=== PATIENT | male | born 1990 | race Caucasian/White ===

== ENCOUNTER 2018-04-01 19:09 | Emergency (ER) | payer OTHER ==
[~2018-04-01] VITALS: Ht 172.7 cm; Wt 70.0 kg
[2018-04-01 19:12] VITALS: BP 123/70; PULSE 75; RESP 22; Ht 172.7 cm; Wt 70.0 kg
[2018-04-01] MEDS ORDERED: EPINEPHrine 1 MG INJ SC STA (20:26)
[2018-04-01] MEDS ORDERED: EPIN0.3P4 INJ (20:39)
[2018-04-01] MEDS ORDERED: CETI10CA PO (20:39)
[2018-04-01] MEDS ORDERED: RANI150T35 PO (20:43)
--- NOTE | 2018-04-01 20:49 | ERD ---
ER Documentation Chief Complaint Chief Complaint facial swelling after eating dinner of potatoes&rice HPI 27-year-old male complaining of throat swelling, facial itching and swelling during dinner about 2 hours ago. Reports that he noticed his right eye was swollen. He was given Claritin tablet by his sister. Patient states that his itching and swelling on the face appeared to be improved, but he still felt his throat swollen. He reports feeling short of breath at the onset. Currently, he still felt his nose is congested, but able to breathe through his mouth. The dinner was cooked by his mom, and is same thing that he always eats without issues. Patient reports taking omeprazole for last 2-month for gastritis. Denies exposure to any new foods or new cleaning products. Denies any other new medications or other exposure. Denies fever or chills. Denies abdominal pain, nausea, or vomiting. ROS All systems reviewed and are negative except as per history of present illness. Medications Home Meds Active Scripts Ranitidine Hcl* (Zantac*) 150 Mg Tablet, 150 MG PO BID PRN for EPIGASTRIC PAIN, #30 TAB Prov:DEAN BURNETT. AGENT LICENSING CLERK 04/01/18 Epinephrine (Epipen 2-Ross) 0.3 Mg/0.3 Ml Pen.injctr, 1 EA INJ ONCE PRN for ALLERGIC REACTION, #1 EA Prov:DEAN BURNETT. AGENT LICENSING CLERK 04/01/18 Cetirizine Hcl* (Zyrtec*) 10 Mg Capsule, 10 MG PO DAILY, #10 TAB.CHEW Prov:DEAN BURNETT. AGENT LICENSING CLERK 04/01/18 Allergies Allergies: Coded Allergies: No Known Allergy (Verified Allergy, Unknown, 02/05/08) PMhx/Soc Medical and Surgical Hx: pt denies Surgical Hx History of Surgery: No Anesthesia Reaction: No Hx Neurological Disorder: No Hx Respiratory Disorders: No Hx Cardiac Disorders: No Hx Psychiatric Problems: No Hx Miscellaneous Medical Probl: Yes (GERD) Hx Alcohol Use: No Hx Substance Use: No Hx Tobacco Use: No Smoking Status: Never smoker Physical Exam Vitals Vital Signs Date Temp Pulse Resp B/P (MAP) Pulse Ox O2 O2 Flow FiO2 Time Delivery Rate 04/01/18 97.8 75 22 123/70 98 19:12 (87) Physical Exam General: Well-developed, well-nourished, conscious and coherent, in no distress Skin: Warm and dry without rash, good texture and turgor Head: Normocephalic without evidence of trauma Eyes: Sclera and conjunctivae normal; pupils equal, round, and reactive to light; extraocular movements are intact. No periorbital swelling Nose/Face: Nasal congestion Mouth/throat: Mucous membranes are moist. Posterior pharynx clear without erythema or exudates. No pharyngeal swelling Neck: Supple without meningismus or adenopathy. Carotids are equal. Trachea midline. No bruits or JVD Chest: Normal AP diameter. Good expansion without retractions. Nontender. Lungs are clear to auscultate bilaterally with good tidal volume Heart: Regular rate and rhythm. No murmur, rub, or gallops heard Abdomen: Soft and nontender without masses, guarding, or rebound. Bowel sounds are active. No hepatosplenomegaly Extremities: Full range of motion. Good strength bilaterally. No erythema, ecchymosis, or edema. Peripheral pulses are intact. Sensation intact Neuro: Alert and oriented 4, GCS 15. Results 24 hrs Current Medications Medications Dose Sig/Thea Start Time Status Last (Trade) Ordered Route PRN Stop Time Admin Dose Reason Admin Epinephrine 0.3 mg ONCE STAT 04/01/18 DC 04/01/18 SC 20:26 04/01/18 20:33 (EPINEPHrine) 20:28 50 mg ONCE ONCE 04/01/18 DC 04/01/18 Diphenhydrami PO 22:30 04/01/18 22:12 ne HCl 22:31 (Benadryl) Procedures/MDM 27-year-old male present ED with allergic reaction symptoms. Patient still complaining of swelling in his throat, concerning for anaphylaxis. Epinephrine 0.3 mg subcu and Benadryl 50 mg p.o. given to the patient in the ED. patient reports throat swelling resolved after the medications. Patient is observed for 3 hours after epinephrine. No recurrence of the symptoms. Patient appears well, stable for discharge and outpatient management. Medical decision making shared with patient and family. Education provided to patient and family. Patient and family expressed understanding of the plan. Medications on discharge: EpiPen, cetirizine, ranitidine. Follow-up: Primary care provider in 2-3 days or return to ED if worse. Disclaimer: Inadvertent spelling and grammatical errors are likely due to EHR/dictation software use and do not reflect on the overall quality of patient care. Also, please note that the electronic time recorded on this note does not necessarily reflect the actual time of the patient encounter. Departure Diagnosis: Primary Impression: Allergic reaction Encounter type: initial encounter Qualified Codes: T78.40XA - Allergy, unspecified, initial encounter Condition: Stable Patient Instructions: Anaphylaxis, General Referrals: DOCTOR,NOT ON STAFF (PCP) COMM[facility] YOU HAVE RECEIVED A MEDICAL SCREENING EXAM AND THE RESULTS INDICATE THAT YOU DO NOT HAVE A CONDITION THAT REQUIRES URGENT TREATMENT IN THE EMERGENCY DEPARTMENT. FURTHER EVALUATION AND TREATMENT OF YOUR CONDITION CAN WAIT UNTIL YOU ARE SEEN IN YOUR DOCTORS OFFICE WITHIN THE NEXT 1-2 DAYS. IT IS YOUR RESPONSIBILITY TO MAKE AN APPOINTMENT FOR FOLOW-UP CARE. IF YOU HAVE A PRIMARY DOCTOR --you should call your primary doctor and schedule an appointment IF YOU DO NOT HAVE A PRIMARY DOCTOR YOU CAN CALL OUR PHYSICIAN REFERRAL HOTLINE AT IF YOU CAN NOT AFFORD TO SEE A PHYSICIAN YOU CAN CHOSE FROM THE FOLLOWING [facility] [address] [facility]. [facility] [address] [facility]. [facility] [address] [facility] [facility] [address] [facility]. [facility] [address] [facility]. [facility]. [address] [place] Additional Instructions: Call your primary care doctor TOMORROW for an appointment during the next 2-3 days.See the doctor sooner or return here if your condition worsens before your appointment time. DEAN BURNETT NP Apr 01, 2018 20:49
[2018-04-01] MEDS ORDERED: DIPHENHYDRAMINE 50 MG CAP PO ONE (22:30)
== END 2018-04-01 23:37 | disposition home or self-care (01) ==
LOC: FTE 19:09
DX: R22.0 Localized swelling, mass and lump, head (principal); R40.2412 Glasgow coma scale score 13-15, at arrival to emergency department
CPT/HCPCS: J0171; Z7610; 99282

== ENCOUNTER 2018-05-31 12:30 | Day surgery (SDC) | payer OTHER ==
[~2018-05-31] VITALS: Ht 165.1 cm; Wt 68.6 kg
[~2018-05-31 12:30] MED LIST: CETI10CA PO; EPIN0.3P4 INJ; RANI150T35 PO
[2018-05-31 13:23] VITALS: Ht 165.1 cm; Wt 68.6 kg
[2018-05-31] MEDS ORDERED: DIPHENHYDRAMINE 50 MG INJ ONE (13:36)
--- NOTE | 2018-05-31 13:37 | HPN ---
Date/Time of Note Date/Time of Note DATE: 05/31/18 TIME: 13:37 Interval H&P Admission Note Pt. seen H&P reviewed: No system changes ROXY GARNER May 31, 2018 13:37
[2018-05-31] MEDS ORDERED: MIDAZOLAM 1 MG/ML 2 ML INJ ONE ×2 (14:20)
[2018-05-31] MEDS ORDERED: FENTAnyl 50 MCG/ML VIAL ONE (14:21)
[2018-05-31] MEDS ORDERED: LIDOCAINE 2% (SDV) 5 ML INJ ONE (14:22)
[2018-05-31] MEDS ORDERED: ONDANSETRON 4 MG INJ ONE (14:23)
[2018-05-31 14:35] VITALS: BP 111/66; PULSE 65; RESP 18
== END 2018-05-31 16:51 | disposition home or self-care (01) ==
LOC: GIL 12:30
PROVIDERS: ATTEND Internal Medicine Gastroenterology
DX: R19.4 Change in bowel habit (principal); K29.30 Chronic superficial gastritis without bleeding
CPT/HCPCS: 43239; 45380; 88305; 88312; J1200; J2250; J2405; J3010; Z7610

== ENCOUNTER 2018-07-05 03:31 | Observation (INO) | payer OTHER ==
[~2018-07-05] VITALS: Ht 172.7 cm; Wt 70.3 kg
[2018-07-05] MEDS ORDERED: ACETAMINOPHEN 325 MG TAB PO STA (03:48)
[2018-07-05] MEDS ORDERED: CEFEPIME 2GM/50 ML (PMX) 50 ML IVPB STA (03:48)
[2018-07-05] MEDS ORDERED: SODIUM CHLORIDE 0.9% 1L BAG IV* STA (03:48)
[2018-07-05] MEDS ORDERED: VANCOMYCIN 1 GM (PMX) 250 ML IVPB ONE (04:00)
[2018-07-05] MEDS ORDERED: ONDANSETRON 4 MG INJ ONE (04:17)
[2018-07-05] MEDS ORDERED: ONDANSETRON 4 MG INJ IV STA (04:26)
[2018-07-05] MEDS ORDERED: morphine 4 MG/ML VIAL IV STA ×2 (04:26→06:02)
[2018-07-05] MEDS ORDERED: KETOROLAC 30 MG INJ IV STA (04:27)
--- NOTE | 2018-07-05 05:10 | ERD ---
ER Documentation Chief Complaint Chief Complaint fever/body aches /abd/back pain x 2 days HPI This is a 28-year-old male with fever body aches back pain and chest pain for the past 2 days. Patient has history of pericarditis. Fevers been as high as 103 at home. Mild nausea but no vomiting. No chills. No other current complaints. ROS All systems reviewed and are negative except as per history of present illness. Medications Home Meds Active Scripts Ranitidine Hcl* (Zantac*) 150 Mg Tablet, 150 MG PO BID PRN for EPIGASTRIC PAIN, #30 TAB Prov:DEAN BURNETT. CLINICAL QUALITY MANAGER 04/01/18 Epinephrine (Epipen 2-Ross) 0.3 Mg/0.3 Ml Pen.injctr, 1 EA INJ ONCE PRN for ALLER GIC REACTION, #1 EA Prov:DEAN BURNETT. CLINICAL QUALITY MANAGER 04/01/18 Cetirizine Hcl* (Zyrtec*) 10 Mg Capsule, 10 MG PO DAILY, #10 TAB.CHEW Prov:DEAN BURNETT. CLINICAL QUALITY MANAGER 04/01/18 Allergies Allergies: Coded Allergies: No Known Allergy (Verified , 02/05/08) PMhx/Soc History of Surgery: No Anesthesia Reaction: No Hx Neurological Disorder: No Hx Respiratory Disorders: No Hx Cardiac Disorders: Yes (pericarditis ) Hx Psychiatric Problems: No Hx Miscellaneous Medical Probl: Yes (GERD, UTI) Hx Alcohol Use: No Hx Substance Use: No Hx Tobacco Use: No Smoking Status: Never smoker Physical Exam Vitals Vital Signs Date Temp Pulse Resp B/P (MAP) Pulse Ox O2 O2 Flow FiO2 Time Delivery Rate 07/05/18 102.5 105 25 104/48 96 Room Air 04:58 (66) 07/05/18 103.5 04:07 07/05/18 103.5 118 20 130/75 98 03:44 (93) Physical Exam Const: No acute distress Head: Atraumatic Eyes: Normal Conjunctiva ENT: Normal External Ears, Nose and Mouth. Neck: Full range of motion. No meningismus. Resp: Clear to auscultation bilaterally Cardio: Regular rate and rhythm, no murmurs Abd: Soft, non tender, non distended. Normal bowel sounds Skin: No petechiae or rashes Back: No midline or flank tenderness Ext: No cyanosis, or edema Neur: Awake and alert Psych: Normal Mood and Affect Result Diagram: 07/05/1839907/05/18 0400 Results 24 hrs Laboratory Tests Test 07/05/18 03:59 07/05/18 04:00 POC Venous Lactate 2.1 mmol/L White Blood Count 16.1 10^3/ul Red Blood Count 6.04 10^6/ul Hemoglobin 15.9 g/dl Hematocrit 48.6 % Mean Corpuscular Volume 80.5 fl Mean Corpuscular Hemoglobin 26.3 pg Mean Corpuscular Hemoglobin Concent 32.7 g/dl Red Cell Distribution Width 13.0 % Platelet Count 302 10^3/UL Mean Platelet Volume 8.2 fl Immature Granulocytes % 0.400 % Neutrophils % 87.1 % Lymphocytes % 8.7 % Monocytes % 3.2 % Eosinophils % 0.4 % Basophils % 0.2 % Nucleated Red Blood Cells % 0.0 /100WBC Immature Granulocytes # 0.060 10^3/ul Neutrophils # 14.0 10^3/ul Lymphocytes # 1.4 10^3/ul Monocytes # 0.5 10^3/ul Eosinophils # 0.1 10^3/ul Basophils # 0.0 10^3/ul Nucleated Red Blood Cells # 0.0 10^3/ul Prothrombin Time 12.9 Sec Prothrombin Time Ratio 1.0 INR International Normalized Ratio 0.96 Activated Partial Thromboplast Time 25.7 Sec Sodium Level 144 mmol/L Potassium Level 3.8 mmol/L Chloride Level 104 mmol/L Carbon Dioxide Level 29 mmol/L Anion Gap 11 Blood Urea Nitrogen 13 mg/dl Creatinine 0.93 mg/dl Est Glomerular Filtrat Rate mL/min > 60 mL/min Glucose Level 99 mg/dl Calcium Level 9.6 mg/dl Total Bilirubin 0.2 mg/dl Direct Bilirubin 0.00 mg/dl Indirect Bilirubin 0.2 mg/dl Aspartate Amino Transf (AST/SGOT) 25 IU/L Alanine Aminotransferase (ALT/SGPT) 33 IU/L Alkaline Phosphatase 79 IU/L Troponin I < 0.012 ng/ml Total Protein 8.2 g/dl Albumin 4.7 g/dl Globulin 3.50 g/dl Albumin/Globulin Ratio 1.34 Current Medications Medications Dose Sig/Thea Start Time Status Last (Trade) Ordered Route PRN Stop Time Admin Dose Reason Admin Sodium 2,110 ml BOLUS OVER 2 07/05/18 DC 07/05/18 Chloride HOURS STAT 03:48 07/05/18 04:07 (NS) IV* 03:49 650 mg ONCE STAT 07/05/18 DC 07/05/18 Acetaminophen PO 03:48 07/05/18 04:07 (Tylenol 03:49 Tab) Cefepime HCl 50 ml @ ONCE STAT 07/05/18 DC 07/05/18 100 mls/hr IVPB 03:48 07/05/18 04:10 04:17 Vancomycin 250 ml @ ONCE ONCE 07/05/18 07/05/18 HCl 125 mls/hr IVPB 04:00 07/05/18 04:46 05:59 Ondansetron 4 mg STK-MED 07/05/18 DC HCl (Zofran ONCE .ROUTE 04:17 07/05/18 Inj) 04:18 Morphine 4 mg ONCE STAT 07/05/18 DC 07/05/18 Sulfate IV 04:26 07/05/18 04:31 (morphine) 04:27 Ondansetron 4 mg ONCE STAT 07/05/18 DC 07/05/18 HCl (Zofran IV 04:26 07/05/18 04:31 Inj) 04:27 Ketorolac 30 mg ONCE STAT 07/05/18 DC 07/05/18 Tromethamine IV 04:27 07/05/18 04:32 (Toradol) 04:28 Procedures/MDM EKG: Rate/Rhythm: [Normal Sinus Rhythm] QRS, ST, T-waves: Diffuse ST segment elevations consistent with pericarditis Impression: [No evidence of ischemia or arrhythmia] Chest X-ray 1V Interpreted by me: Soft Tissue: No acute abnormalities Bones: No acute abnormalities Mediastinum/Cardiac Silhouette/Lungs: [No acute abnormalities] Patient's infectious symptoms have not stabilized and the patient is at risk of rapid decompensation. The patient will be admitted for careful hydration, antibiotic therapy, and infectious source control. Severe Sepsis Assessment: Infectious Source: Unknown, likely viral End organ damage indicated by: [Lactate > 2.0 mmol/L Severe Sepsis Managment: Blood Cultures X 2 before broad spectrum antibiotics initiated within 3 hours of recognition. Recognized at 4 AM 30 ml/kg NS bolus Completed Initial Lactate: 2.1 Repeat Lactate pending Critical Care: Time: 45 minutes, independent of any separately billable procedural time Treatments/Evaluations: Emergent fluid management, while maintaining close respiratory support. Immediate broad spectrum antibiotic therapy. S imultaneous assessment for possible sources in order to direct therapy. Consideration for invasive and chemical support to prevent respiratory or cardiac collapse. Septic Shock Assessment (1 hour post 30 ml/kg fluid bolus): Hypotension (SBP < 90 or 40 mmHg drop, MAP < 65): [No] Lactic acid > 4.0 [No] Perfusion Reassessment for Septic Shock: 106 heart rate, blood pressure 127/84, respiratory rate 18, O2 sat 99% Heart Exam: [Tachycardic] Lung Exam: [No Crackles] Capillary Refill: [Delayed] Peripheral Pulses: [Radially present] Skin: [Mottled, pale] Accepting Care Team: Current data and ongoing care discussed. Time: 4:45 AM Primary Provider: Dr. Acuña Consulting: Deferred to inpatient team Outstanding Data: none Departure Diagnosis: Primary Impression: Sepsis Sepsis type: sepsis due to unspecified organism Qualified Codes: A41.9 - Sepsis, unspecified organism Additional Impression: Pericarditis Pericarditis type: unspecified type Chronicity: unspecified Qualified Codes: I31.9 - Disease of pericardium, unspecified Condition: Critical AKIRA CRESPO July 05, 2018 05:10
[2018-07-05] MEDS ORDERED: VANCOMYCIN IV PER PHARMACY XX SCH (06:30)
[2018-07-05] MEDS ORDERED: ONDANSETRON 4 MG TAB PO PRN (06:30)
[2018-07-05] MEDS ORDERED: NACL 0.9% 3 ML SYG IV SCH (06:30)
[2018-07-05] MEDS ORDERED: DOCUSATE SODIUM 100 MG CAP PO PRN (06:30)
[2018-07-05] MEDS: ACETAMINOPHEN 325 MG TAB PO PRN ×3 (08:27→20:39)
[2018-07-05] MEDS: HYDROCODONE/APAP (5/325) TAB PO PRN ×2 (08:27→14:49)
[2018-07-05] MEDS ORDERED: VANCOMYCIN 500 MG (PMX) 100 ML IVPB ONE (09:00)
[2018-07-05] MEDS ORDERED: NON-FORMULARY/PATIENT OWN MED (Cetirizine Hcl* (Zyrtec*) 10 MG) PO SCH (09:00)
[2018-07-05] MEDS: NS + KCL 20 MEQ 1,000 ML IV SCH ×2 (09:16→18:04)
[2018-07-05] MEDS: RANITIDINE 150 MG TAB PO SCH ×2 (10:57→21:00)
[2018-07-05] MEDS: LORATADINE 10 MG TAB PO SCH (10:57)
--- NOTE | 2018-07-05 11:22 | HP ---
DATE OF ADMISSION: 07/05/2018 CHIEF COMPLAINT: Abdominal pain associated with nausea, vomiting, and diarrhea. HISTORY OF PRESENT ILLNESS: A 28-year-old male presented to emergency room with complaint of abdominal pain associated with nausea and vomiting of bilious material. The patient also has had diarrhea. He denies hematemesis. No bright red blood per rectum or melena. The patient was in the week prior to admission for 3 days. His symptoms started on the day of admission. The patient had salmon at a restaurant in [place]. He also reports body aches. The patient has history of pericarditis. Initial evaluation revealed a white blood cell count of 16.1. Initial lactate was 2.1, but repeat lactate was 1.4. Basic metabolic panel is otherwise within normal limits. PAST MEDICAL HISTORY: 1. History of pericarditis. 2. Allergic rhinitis. MEDICATIONS PRIOR TO ADMISSION: Zyrtec and ranitidine. SOCIAL HISTORY: The patient denies tobacco and drinks alcohol on social occasions. PHYSICAL EXAMINATION: GENERAL: Well-developed, well-nourished male who is in no apparent distress. He complains of headache. VITAL SIGNS: Temperature is 102, blood pressure 94/59, pulse 99, respirations 17. HEENT: Extraocular muscles intact. Pupils equal and reactive to light bilaterally. Sclerae are anicteric. Oropharynx is clear and moist. NECK: Supple, no JVD, no carotid bruits. LUNGS: Clear to auscultation bilaterally. CARDIAC: Regular rate and rhythm. No murmurs or gallops. ABDOMEN: Soft, mildly tender, normoactive bowel sounds. EXTREMITIES: No clubbing, cyanosis, or edema. NEUROLOGICAL: Nonfocal. ASSESSMENT: 1. Abdominal pain associated with nausea and vomiting and diarrhea, rule out infectious colitis. 2. History of pericarditis PLAN: 1. Place in Med/Surg observation, IV Cipro and Flagyl. Stool cultures. 2. Cardiology consultation was also requested. Dictated By: NAHUN LONDON/BENEDICTO Conf#: [id number] DID#: [id number] CC: KIRTI CARRENO MD;*EndCC* MTDD
--- NOTE | 2018-07-05 11:32 | RADRPT ---
Echocardiogram Report Patient Name: Jere GRIFFIN ID: [id number] : 1990 (28y 1m)Study Date: 07/05/2018 8:23:32 AM Gender: MAccession #: [id number] Tech: Elieser [facility] Location: [facility] Ref.Physician: VINCE KINGSLEY Height(Cm): BSA: Weight(Kg): Quality: GoodAccount #: Procedures: Echocardiographic Report: Transthoracic echocardiogram with complete 2D, M-Mode, and doppler examination. Indications: Possible infectious pericarditis. Measurements: 2D/M Mode Doppler Measurement Value Normal Range Measurement Value Normal Range LVIDd 2D 4.6 [ 4.2 - 5.8 ] cm AV Peak Norris 1.6 [ 100.0 - 170.0 ] cm/sec LVIDs 2D 2.9 [ 2.5 - 4.0 ] cm AV Peak PG 10.0 [ 2.0 - 9.0 ] mmHg LVPWd 2D 0.8 [ 0.6 - 1.0 ] cm LVOT Peak Norris 1.2 [ 70.0 - 110.0 ] cm/sec IVSd 2D 1.3 [ 0.6 - 1.0 ] cm LVOT Peak PG 6.0 [ 2.0 - 6.0 ] mmHg AoR Diam 2D 2.3 [ 2.6 - 3.4 ] cm MV E Peak Norris 1.0 [ 60.0 - 130.0 ] cm/sec EDV 2D 98.3 [ 62.0 - 150.0 ] ml MV A Peak Norris 0.7 [ 100.0 - 120.0 ] cm/sec ESV 2D 31.4 [ 21.0 - 61.0 ] ml MV E/A 1.4 [ 0.8 - 1.5 ] ratio EF 2D 68.1 [ 52.0 - 72.0 ] percent MV Decel Time 109 [ 104 - 258 ] msec LA Dimen 2D 3.5 [ 3.0 - 4.0 ] cm Lat E` Norris 0.2 [ 10.0 - 15.0 ] cm/sec Lateral E/E` 4.2 [ 1.0 - 2.0 ] ratio MV E/A 1.4 [ 0.8 - 1.5 ] ratio TR Peak Norris 1.9 [ 100.0 - 280.0 ] cm/sec TR Peak PG 14.0 mmHg RVSP 17.0 [ 10.0 - 36.0 ] mmHg Findings: Left Ventricle: Hyperdynamic left ventricular systolic function. Normal left ventricular cavity size. Mild asymmetric septal hypertrophy. Ejection fraction is visually estimated at 70 %. Tissue Doppler/Mitral Doppler indices are within normal limits. Right Ventricle: Normal right ventricular size. Normal right ventricular systolic function. Left Atrium: The left atrium is normal in size. Right Atrium: The right atrium is normal in size. Mitral Valve: Mild mitral leaflet calcification. Mild mitral annular calcification. Trace mitral regurgitation. Aortic Valve: No hemodynamically significant aortic stenosis by doppler. Aortic cusps appear mildly calcified. Tricuspid Valve: Normal appearance of the tricuspid valve. Estimated peak PA systolic pressure 17 mmHg. There is trace tricuspid regurgitation. Pulmonic Valve: Normal pulmonic valve appearance. Pericardium: Normal pericardium with no significant pericardial effusion. Aorta: Normal aortic root. IVC: Normal size and normal respiratory collapse consistent with normal right atrial pressure. Conclusions: Hyperdynamic left ventricular systolic function. Normal left ventricular cavity size. Mild asymmetric septal hypertrophy. Ejection fraction is visually estimated at 70 %. Tissue Doppler/Mitral Doppler indices are within normal limits. Normal right ventricular size. Normal right ventricular systolic function. The left atrium is normal in size. The right atrium is normal in size. No significant valvular stenosis or regurgitation seen. Normal pericardium with no significant pericardial effusion. Electronically Signed By: Gabe Edmond 2018-07-05 11:31:47 PDT
[2018-07-05] MEDS: CIPROFLOXACIN 400MG/D5W 200 ML IVPB SCH ×2 (12:45→21:23)
--- NOTE | 2018-07-05 12:51 | CONS ---
Assessment/Plan Assessment/Plan Hospital Course (Demo Recall) Fever, leukocytosis Gastroenteritis Possible pericarditis Preserved ejection fraction -Patient presents with fevers, chills, abdominal pain with nausea vomiting and diarrhea. Patient with recent travel to [place] -Echocardiogram with normal left ventricular ejection fraction, no evidence of p ericardial effusion. ECG with diffuse ST segment abnormalities most likely secondary to an element of pericarditis -Serial cardiac enzymes are negative -Would continue infectious work-up Consultation Date/Type/Reason Admit Date/Time Type of Consult Cardiology Reason for Consultation Fever and history of pericarditis Date/Time of Note DATE: 07/05/18 TIME: 12:44 Hx of Present Illness This is a 28-year-old male carditis number GERD who presents with multiple complaints. Patient states over the past 2 weeks, he has been having worsening fevers and chills. He also complains of left upper quadrant abdominal pain, nausea, vomiting, diarrhea, dysuria. He does complain of worsening pain with inspiration. He denies left-sided chest pain at the current time. Because of worsening symptoms he came to the emergency room. He was diagnosed with pericarditis proximate 2 years ago when he was having inspiratory chest pain and as per the patient, he had a negative stress test at that time. His discomfort currently is more so in the abdomen and not in the chest. His discomfort is sharp in intensity. He does admit to recent travel to [place] approximately 2 weeks ago. 12 point review of systems was performed with all pertinent positives and negatives mentioned above and all else is negative Past Medical History Pericarditis Home Meds Active Scripts Ranitidine Hcl* (Zantac*) 150 Mg Tablet, 150 MG PO BID PRN for EPIGASTRIC PAIN, #30 TAB Prov:DEAN BURNETT. PSYCH THERAPIST 04/01/18 Epinephrine (Epipen 2-Ross) 0.3 Mg/0.3 Ml Pen.injctr, 1 EA INJ ONCE PRN for ALLERGIC REACTION, #1 EA Prov:DEAN BURNETT. PSYCH THERAPIST 04/01/18 Cetirizine Hcl* (Zyrtec*) 10 Mg Capsule, 10 MG PO DAILY, #10 TAB.CHEW Prov:DEAN BURNETT. PSYCH THERAPIST 04/01/18 Medications Current Medications Ranitidine HCl (Zantac) 150 mg BID PO Last administered on 07/05/18at 10:57; Admin Dose 150 MG; Start 07/05/18 at 09:00 IV Flush (NS 3 ml) 3 ml PER PROTOCOL IV ; Start 07/05/18 at 06:30 Ondansetron HCl (Zofran Tab) 4 mg Q6H PRN PO NAUSEA/VOMITING; Start 07/05/18 at 06:30 Acetaminophen (Tylenol Tab) 650 mg Q6H PRN PO .PAIN 1-3 OR TEMP Last administered on 07/05/18at 08:27; Admin Dose 650 MG; Start 07/05/18 at 06:30 Acetaminophen/ Hydrocodone Bitart ([place] (5/325)) 1 tab Q6H PRN PO .PAIN 4-6 Last administered on 07/05/18at 08:27; Admin Dose 1 TAB; Start 07/05/18 at 06:30 Docusate Sodium (Colace) 100 mg Q12H PRN PO .CONSTIPATION; Start 07/05/18 at 06:30 Potassium Chloride/Sodium Chloride 1,000 ml @ 100 mls/hr Q10H IV Last administered on 07/05/18at 09:16; Admin Dose 100 MLS/HR; Start 07/05/18 at 06:30 Loratadine (Claritin) 10 mg DAILY PO Last administered on 07/05/18at 10:57; Admin Dose 10 MG; Start 07/05/18 at 09:00 Ciprofloxacin/ Dextrose 200 ml @ 200 mls/hr Q12 IVPB ; Start 07/05/18 at 11:00 Metronidazole 100 ml @ 100 mls/hr Q8 IVPB ; Start 07/05/18 at 14:00 Allergies: Coded Allergies: No Known Allergy (Verified , 02/05/08) Family History Significant Family History: no pertinent family hx Social History Alcohol Use: none Smoking Status: Never smoker Drug Use: none Exam/Review of Systems Vital Signs Vitals Vital Signs Date Temp Pulse Resp B/P (MAP) Pulse Ox O2 O2 Flow FiO2 Time Delivery Rate 07/05/18 95 12 102/81 98 Room Air 11:30 (88) 07/05/18 102.0 11:16 Intake and Output 07/04/18 07/04/18 07/05/18 1515:00 23:00 07:00 IntakeIntake Total 50 ml BalanceBalance 50 ml Exam Constitutional: alert, oriented (No apparent distress) Head: normocephalic Respiratory: clear to auscultation, normal air movement Cardiovascular: regular rate and rhythm (S1-S2 heard, no murmurs appreciated) Gastrointestinal: soft, bowel sounds, tender (Left upper quadrant) Extremities: other (No edema) Skin: other (Multiple tattoos, no rashes seen) Labs Result Diagram: 07/05/18 1121 07/05/18 0400 Results 24hrs Laboratory Tests Test 07/05/18 03:59 07/05/18 04:00 07/05/18 06:00 07/05/18 06:10 POC Venous Lactate 2.1 *H White Blood Count 16.1 H Red Blood Count 6.04 Hemoglobin 15.9 Hematocrit 48.6 Mean Corpuscular Volume 80.5 L Mean Corpuscular 26.3 L Hemoglobin Mean Corpuscular 32.7 Hemoglobin Concent Red Cell Distribution 13.0 Width Platelet Count 302 Mean Platelet Volume 8.2 Immature Granulocytes % 0.400 Neutrophils % 87.1 H Lymphocytes % 8.7 L Monocytes % 3.2 Eosinophils % 0.4 Basophils % 0.2 Nucleated Red Blood 0.0 Cells % Immature Granulocytes # 0.060 H Neutrophils # 14.0 H Lymphocytes # 1.4 Monocytes # 0.5 Eosinophils # 0.1 Basophils # 0.0 Nucleated Red Blood 0.0 Cells # Prothrombin Time 12.9 Prothrombin Time Ratio 1.0 INR International 0.96 Normalized Ratio Activated 25.7 Partial Thromboplast Time Sodium Level 144 Potassium Level 3.8 Chloride Level 104 Carbon Dioxide Level 29 Anion Gap 11 Blood Urea Nitrogen 13 Creatinine 0.93 Est Glomerular Filtrat > 60 Rate mL/min Glucose Level 99 Calcium Level 9.6 Total Bilirubin 0.2 Direct Bilirubin 0.00 Indirect Bilirubin 0.2 Aspartate Amino 25 Transf (AST/SGOT) Alanine 33 Aminotransferase (ALT/SG PT) Alkaline Phosphatase 79 Troponin I < 0.012 Total Protein 8.2 H Albumin 4.7 Globulin 3.50 H Albumin/Globulin Ratio 1.34 Lactic Acid Level 1.4 Urine Color STRAW Urine Clarity CLEAR Urine pH 6.0 Urine Specific [place] 1.011 Urine Ketones NEGATIVE Urine Nitrite NEGATIVE Urine Bilirubin NEGATIVE Urine Urobilinogen NEGATIVE Urine Leukocyte Esterase NEGATIVE Urine Hemoglobin NEGATIVE Urine Glucose NEGATIVE Urine Total Protein NEGATIVE Test 07/05/18 11:21 Hemoglobin 13.5 L Hematocrit 41.3 L Hemoglobin A1c 5.2 Lactic Acid Level 1.3 Troponin I < 0.012 Thyroid Stimulating 0.420 L Hormone (TSH) Imaging Imaging ECG sinus tachycardia, incomplete right bundle branch block, diffuse ST segment abnormalities Medications Medications Current Medications Ranitidine HCl (Zantac) 150 mg BID PO Last administered on 07/05/18 10:57; Admin Dose 150 MG; Start 07/05/18 at 09:00 IV Flush (NS 3 ml) 3 ml PER PROTOCOL IV ; Start 07/05/18 at 06:30 Ondansetron HCl (Zofran Tab) 4 mg Q6H PRN PO NAUSEA/VOMITING; Start 07/05/18 at 06:30 Acetaminophen (Tylenol Tab) 650 mg Q6H PRN PO .PAIN 1-3 OR TEMP Last admin istered on 07/05/18 08:27; Admin Dose 650 MG; Start 07/05/18 at 06:30 Acetaminophen/ Hydrocodone Bitart ([place] (5/325)) 1 tab Q6H PRN PO .PAIN 4-6 Last administered on 07/05/18 08:27; Admin Dose 1 TAB; Start 07/05/18 at 06:30 Docusate Sodium (Colace) 100 mg Q12H PRN PO .CONSTIPATION; Start 07/05/18 at 06:30 Potassium Chloride/Sodium Chloride 1,000 ml @ 100 mls/hr Q10H IV Last administered on 07/05/18 09:16; Admin Dose 100 MLS/HR; Start 07/05/18 at 06:30 Loratadine (Claritin) 10 mg DAILY PO Last administered on 07/05/18 10:57; Admin Dose 10 MG; Start 07/05/18 at 09:00 Ciprofloxacin/ Dextrose 200 ml @ 200 mls/hr Q12 IVPB ; Start 07/05/18 at 11:00 Metronidazole 100 ml @ 100 mls/hr Q8 IVPB ; Start 07/05/18 at 14:00 Gabe Edmond DO July 05, 2018 12:51
[2018-07-05] MEDS: metroNIDAZOLE 500 MG/NS (PMX) 100 ML IVPB SCH ×2 (14:18→22:45)
[2018-07-05] MEDS ORDERED: VANCOMYCIN 1 GM 250 ML IVPB SCH (17:00)
[2018-07-05 17:15] VITALS: BP 113/66; PULSE 98; RESP 17
[2018-07-05 17:51] VITALS: Ht 172.7 cm; Wt 70.3 kg
[2018-07-05 20:46] VITALS: BP 109/50; PULSE 92; RESP 20
[2018-07-05] MEDS: IBUPROFEN 600 MG TAB PO PRN (21:40)
[2018-07-06 02:42] VITALS: BP 95/56; PULSE 68; RESP 18
[2018-07-06] MEDS: NS + KCL 20 MEQ 1,000 ML IV SCH ×3 (05:17→18:14)
[2018-07-06] MEDS: IBUPROFEN 600 MG TAB PO PRN ×2 (05:17→18:12)
[2018-07-06] MEDS: metroNIDAZOLE 500 MG/NS (PMX) 100 ML IVPB SCH ×3 (05:17→22:06)
[2018-07-06] MEDS ORDERED: ONDANSETRON 4 MG INJ IV PRN (08:30)
[2018-07-06] MEDS: LORATADINE 10 MG TAB PO SCH (08:46)
[2018-07-06] MEDS: CIPROFLOXACIN 400MG/D5W 200 ML IVPB SCH ×2 (08:46→21:03)
[2018-07-06] MEDS: RANITIDINE 150 MG TAB PO SCH ×2 (08:46→21:03)
[2018-07-06 08:50] VITALS: BP 102/55; PULSE 70; RESP 17
[2018-07-06] MEDS ORDERED: CEFEPIME 2GM/50 ML (PMX) 50 ML IVPB SCH (09:00)
[2018-07-06] MEDS ORDERED: CIPR500T4 PO (09:25)
[2018-07-06] MEDS ORDERED: METR500T PO (09:25)
--- NOTE | 2018-07-06 09:25 | PDOCDIS ---
Discharge Instructions CONDITION [id number] Patient Condition: [id number] Good HOME CARE INSTRUCTIONS: [id number] Diet Instructions: [id number] Regular ACTIVITY: [id number] Activity Restrictions: [id number] No Restrictions FOLLOW UP/APPOINTMENTS Follow-up Plan pcp 1 week NAHUN RUIZ MD July 06, 2018 09:25
[2018-07-06] MEDS: morphine 2 MG INJ IV PRN ×3 (10:51→20:02)
[2018-07-06 14:35] VITALS: BP 96/50; PULSE 70; RESP 18
--- NOTE | 2018-07-06 15:27 | CONS ---
Assessment/Plan Assessment/Plan Hospital Course (Demo Recall) Fever, leukocytosis Gastroenteritis Possible pericarditis Preserved ejection fraction -Patient presents with fevers, chills, abdominal pain with nausea vomiting and diarrhea. Patient with recent travel to [place] -Echocardiogram with normal left ventricular ejection fraction, no evidence of p ericardial effusion. ECG with diffuse ST segment abnormalities most likely secondary to an element of pericarditis -Serial cardiac enzymes are negative -Symptoms do not appear cardiac in origin -No further inpatient cardiac work-up needed at the current time Consultation Date/Type/Reason Admit Date/Time July 05, 2018 at 05:53 Initial Consult Date Type of Consult Cardiology Date/Time of Note DATE: 07/06/18 TIME: 15:26 24 HR Interval Summary Free Text/Dictation Denies any chest pain or shortness of breath. Main complaint is abdominal cramping Exam/Review of Systems Vital Signs Vitals Vital Signs Date Temp Pulse Resp B/P (MAP) Pulse Ox O2 O2 Flow FiO2 Time Delivery Rate 07/06/18 98.2 70 18 96/50 (65) 98 14:35 07/06/18 Room Air 02:42 Intake and Output 07/05/18 07/05/18 07/06/18 1515:00 23:00 07:00 IntakeIntake Total 200 ml 1650 ml BalanceBalance 200 ml 1650 ml Exam Constitutional: alert, oriented (Appears uncomfortable) Head: normocephalic Respiratory: clear to auscultation, normal air movement Cardiovascular: regular rate and rhythm (S1-S2 heard) Gastrointestinal: soft, non-tender, bowel sounds Extremities: other (No significant edema) Labs Result Diagram: 07/06/18 0713 07/06/18 0713 Results 24hrs Laboratory Tests Test 07/06/18 07:13 White Blood Count 12.5 #H Red Blood Count 5.04 Hemoglobin 13.4 L Hematocrit 41.2 L Mean Corpuscular Volume 81.7 L Mean Corpuscular Hemoglobin 26.6 L Mean Corpuscular Hemoglobin Concent 32.5 Red Cell Distribution Width 13.6 Platelet Count 201 # Mean Platelet Volume 8.6 Immature Granulocytes % 0.600 H Neutrophils % 82.5 H Lymphocytes % 7.8 L Monocytes % 7.8 Eosinophils % 0.8 Basophils % 0.5 Nucleated Red Blood Cells % 0.0 Immature Granulocytes # 0.070 H Neutrophils # 10.3 H Lymphocytes # 1.0 Monocytes # 1.0 H Eosinophils # 0.1 Basophils # 0.1 Nucleated Red Blood Cells # 0.0 Sodium Level 140 Potassium Level 3.8 Chloride Level 107 Carbon Dioxide Level 26 Anion Gap 7 Blood Urea Nitrogen 6 L Creatinine 0.76 Est Glomerular Filtrat Rate mL/min > 60 Glucose Level 103 Calcium Level 8.8 Magnesium Level 1.7 Medications Medications Current Medications Ranitidine HCl (Zantac) 150 mg BID PO Last administered on 07/06/18 08:46; Admin Dose 150 MG; Start 07/05/18 at 09:00 IV Flush (NS 3 ml) 3 ml PER PROTOCOL IV ; Start 07/05/18 at 06:30 Acetaminophen (Tylenol Tab) 650 mg Q6H PRN PO .PAIN 1-3 OR TEMP Last administe red on 07/05/18 20:39; Admin Dose 650 MG; Start 07/05/18 at 06:30 Acetaminophen/ Hydrocodone Bitart ([place] (5/325)) 1 tab Q6H PRN PO .PAIN 4-6 Last administered on 07/05/18 14:49; Admin Dose 1 TAB; Start 07/05/18 at 06:30 Docusate Sodium (Colace) 100 mg Q12H PRN PO .CONSTIPATION; Start 07/05/18 at 06 :30 Potassium Chloride/Sodium Chloride 1,000 ml @ 100 mls/hr Q10H IV Last administered on 07/06/18 05:17; Admin Dose 100 MLS/HR; Start 07/05/18 at 06:30 Loratadine (Claritin) 10 mg DAILY PO Last administered on 07/06/18 08:46; Admin Dose 10 MG; Start 07/05/18 at 09:00 Ciprofloxacin/ Dextrose 200 ml @ 200 mls/hr Q12 IVPB Last administered on 07/06/18 08:46; Admin Dose 200 MLS/HR; Start 07/05/18 at 11:00 Metronidazole 100 ml @ 100 mls/hr Q8 IVPB Last administered on 07/06/18 14:09; Admin Dose 100 MLS/HR; Start 07/05/18 at 14:00 Ibuprofen (Motrin) 600 mg Q6 PRN PO MILD PAIN(1-3) OR TEMP>38C Last administered on 5/10/19at 05:17; Admin Dose 600 MG; Start 07/05/18 at 22:00 Morphine Sulfate (morphine) 2 mg Q4H PRN IV SEVERE PAIN LEVEL 7-10 Last administered on 07/06/18at 15:02; Admin Dose 2 MG; Start 07/06/18 at 08:30 Ondansetron HCl (Zofran Inj) 4 mg Q6H PRN IV NAUSEA AND/OR VOMITING; Start 07/06/18 at 08:30 Gabe Edmond DO July 06, 2018 15:27
--- NOTE | 2018-07-06 19:35 | DS ---
DATE OF ADMISSION: 07/05/2018 DATE OF DISCHARGE: 07/06/2018 DISCHARGE DIAGNOSES: 1. Acute infectious colitis. 2. History of pericarditis. HOSPITAL COURSE: A 28-year-old male who presented to emergency room with complaint of abdominal pain associated with bilious vomiting and diarrhea. Initial evaluation revealed a white blood cell count of 16.1. Initial lactate was 2.1 and repeat lactate was 1.4. I started the patient on IV Cipro and Flagyl. White blood cell count decreased to 12,000. His abdominal pain subsided. The patient has a history of pericarditis. He was seen in consultation by Dr. Edmond. A 2D echo alex wed a normal ejection fraction of 70%. The patient is in a stable condition for discharge. I prescr ibed 7 days of Cipro and Flagyl. The patient was instructed to advance his diet as tolerated and fol low up with primary care provider in 1 week. Dictated By: NAHUN RUIZ MD SK/NTS Conf#: [id number] DID#: [id number] CC: VINCE KINGSLEY MD;*EndCC*
[2018-07-06 19:42] VITALS: BP 109/60; PULSE 79; RESP 18
== END 2018-07-06 23:29 | disposition home or self-care (01) ==
LOC: E/R 03:31 → INTOOBSV 05:53 → PP2 05:53 → EDBEDREQ 13:38 → EDBEDREQSVC 13:38
PROVIDERS: ADMIT Internal Medicine; ATTEND Internal Medicine
DX: A09 Infectious gastroenteritis and colitis, unspecified (principal)
CPT/HCPCS: 36415; 71045; 74176; 80048; 80053; 81003; 83036; 83605; 83735; 84443; 84484; 85014; 85018; 85025; 85610; 85730; 86480; 87040; 87045; 87086; 93005; 93306; 96365; 96375; J0692; J0744; J1885; J2270; J2405; J3370; J3480; J7030; Z7500; Z7502; Z7610; 99217; G0378